=== PATIENT | female | born 1990 ===

== ENCOUNTER 2017-11-06 17:54 | Emergency (ER) | payer SELFPAY ==
[2017-11-06] MEDS ORDERED: HYDROcodone/ACETAMIN 5-325 MG* 1 TAB PO ONE (19:10)
[2017-11-06] MEDS ORDERED: Ibuprofen TAB* 400 MG PO ONE (19:10)
--- NOTE | 2017-11-06 19:29 | RAD ---
INDICATION: Right hand pain COMPARISON: None TECHNIQUE: Multiple views were obtained. FINDINGS: There is an essentially nondisplaced oblique fracture of the distal fifth metacarpal. There are no other fractures. There is soft tissue swelling at the fracture site. IMPRESSION: FIFTH METACARPAL FRACTURE WITH SOFT TISSUE SWELLING.
--- NOTE | 2017-11-06 19:35 | UC ---
Hand/Wrist HPI - HPI Summary HPI Summary: 27 year old RHD female with history of PTSD, panic disorder here with complaint of right hand pain. She was having panic attack, and she punched her right hand against glass frame. Reports pain over right hand. No other injuries. - History Of Current Complaint Chief Complaint: UCUpperExtremity Stated Complaint: HAND INJURY Time Seen by Provider: 11/06/17 18:48 Hx Obtained From: Patient Hx Last Menstrual Period: 2 weeks ago Onset/Duration: Sudden Onset Severity Initially: Severe Severity Currently: Severe Pain Intensity: 7 Character Of Pain: Throbbing Aggravating Factor(s): Movement Alleviating Factor(s): Nothing Associated Signs And Symptoms: Positive: Swelling, Bruising - Allergies/Home Medications Allergies/Adverse Reactions: Allergies Allergy/AdvReac Type Severity Reaction Status Date / Time Penicillins Allergy Airway Verified 11/06/17 18:47 Obstruction Home Medications: Home Medications Albuterol HFA INHALER* [Ventolin HFA Inhaler*] 1 puff INH Q4H PRN 11/06/17 [ History Confirmed 11/06/17] Amitriptyline TAB* [Elavil TAB*] 25 mg PO BEDTIME 11/06/17 [History Confirmed ] Dextroamphetamine/Amphetamine [Adderall 10 mg-] 1 tab PO DAILY 11/06/17 [ History Confirmed 11/06/17] Melatonin [Melatonin Maximum Strengt] 9 mg PO QPM 11/06/17 [History Confirmed ] busPIRone TAB* [Buspar TAB *] 22.5 mg PO BID 11/06/17 [History Confirmed ] raNITIdine HCl [Ranitidine HCl] 150 mg PO BID 11/06/17 [History Confirmed ] PMH/Surg Hx/FS Hx/Imm Hx - Surgical History Surgical History: Yes Surgery Procedure, Year, and Place: back surgery 2010, 2012, 2014. colonoscopy 2017. upper endoscopy 2017 - Family History Known Family History: Positive: None - Social History Alcohol Use: None Substance Use Type: Marijuana Smoking Status (MU): Never Smoked Tobacco - Immunization History Most Recent Tetanus Shot: 04/2010 Review of Systems Constitutional: Negative Musculoskeletal: Edema All Other Systems Reviewed And Are Negative: Yes Physical Exam Triage Information Reviewed: Yes Appearance: Well-Appearing, Pain Distress Vital Signs: Initial Vital Signs Temp 37.6 C 11/06/17 18:50 Pulse 90 11/06/17 18:50 Resp 18 11/06/17 18:50 BP 104/70 11/06/17 18:50 Pulse Ox 97 11/06/17 18:50 Vital Signs Reviewed: Yes Respiratory Exam: Normal Respiratory: Positive: Chest non-tender Abdominal Exam: Normal Musculoskeletal: Positive: Edema @ - right 5th distal end of metacarpal, Other: - No snuff box tenderness Skin: Positive: Other - right hand with tiny abrasion to dorsal aspect of hand SILT in R/U/M motor intact in AIN/PIN/U Procedures - Splinting Hand-Made Type: orthoglass Pre-Proc Neuro Vasc Exam: normal Post-Proc Neuro Vasc Exam: normal Diagnostics - Radiology No standard instances Xray Interpretation: Positive (See Comments) Radiology Interpretation Completed By: Radiologist - Nondisplaced 5th metacarpal fx. No FB Hand/Wrist Course/Dx - Course Course Of Treatment: Right hand fifth metacarpal fracture - Differential Dx/Diagnosis Differential Diagnosis/HQI/PQRI: Contusion, Foreign Body, Infection, Sprain Provider Diagnoses: Right 5th metacarpal fracture Discharge - Discharge Plan Condition: Good Disposition: HOME Prescriptions: Hydrocodone/Acetaminophen [[place] 5-325 mg] 1 tab PO Q6HR PRN #12 tab MDD 2 PRN Reason: Pain Ibuprofen TAB* [Motrin TAB* 800 MG] 800 mg PO Q6H PRN #30 tab PRN Reason: Pain Patient Education Materials: Splint Care (ED), Hand Fracture (ED) Forms: *Work Release Referrals: Daniel Arias MD [Primary Care Provider] - Pascale Mahan MD [Medical Doctor] - Additional Instructions: Call and make an appointment with an orthopedics doctor in 10 days. Call to make appointment a week before.
[2017-11-06 20:33] VITALS: BP 109/82
== END 2017-11-06 20:34 | disposition home or self-care (01) ==
LOC: UCEAST 17:54
DX: S92.354A Nondisplaced fracture of fifth metatarsal bone, right foot, initial encounter for closed fracture (principal); S60.511A Abrasion of right hand, initial encounter; W22.8XXA Striking against or struck by other objects, initial encounter; Y93.9 Activity, unspecified; Y92.9 Unspecified place or not applicable; Z88.0 Allergy status to penicillin
CPT/HCPCS: 99202; A9270-GY; G0463